=== PATIENT | female | born 1985 | race Two or more races ===

== ENCOUNTER 2020-05-08 09:50 | Inpatient (IN) | payer OTHER ==
[~2020-05-08] VITALS: Ht 160 cm; Wt 87.5 kg
[2020-05-08] MEDS ORDERED: LOSARTAN POTAS100 MG (10:12)
[2020-05-08] MEDS ORDERED: VITAMINA D (10:13)
--- NOTE | 2020-05-08 10:13 | NUR ---
SE RECIBE PTE. FEMENINA ALERTA CONCIENTE Y ORIENTADA QUE REFIERE DIARREAS VOMITOS X8 NAUSEAS MALESTAR GENERAL DESDE HOY EN LA MANANA.
--- NOTE | 2020-05-08 10:48 | NUR ---
PACIENTE ALERTA,ESTABLE Y ORIENTADA .SE ORIENTA SOBRE EL TRATAMIENTO QUE SE LE REALIZARA EN EL HOSPITAL Y ESTA REFIERE ENTENDER
--- NOTE | 2020-05-08 15:00 | NUR ---
PACIENTE FEMINA ALERTA ORIENTADA EN COMPANIA DE FAMILAIR. AREA DE VENOPUNCION PATENTE PATRICIA DE EDEMA Y ERITEMA. PENDIENTE RESULTADOS DE LABORATORIO Y CT ABDOMINOPELVICO. SE AVTAR PRIVACIDAD Y SEGURIDAD EN TODO MOMENTO. ACIENTE ESTBALE.
== END 2020-05-11 12:06 | disposition home or self-care (01) | DRG 419 ==
LOC: ER 09:50 → SURH 21:45
PROVIDERS: ADMIT Surgery; ATTEND Surgery
PROC: 0FT44ZZ Resection of Gallbladder, Percutaneous Endoscopic Approach (ICD-10-PCS; principal; 2020-05-09 07:00)
DX: K80.00 Calculus of gallbladder with acute cholecystitis without obstruction (principal); E86.0 Dehydration; K58.8 Other irritable bowel syndrome; Z20.828 Contact with and (suspected) exposure to other viral communicable diseases; I10 Essential (primary) hypertension; E55.9 Vitamin D deficiency, unspecified; E87.8 Other disorders of electrolyte and fluid balance, not elsewhere classified

== ENCOUNTER 2021-06-18 21:56 | Emergency (ER) | payer OTHER ==
[~2021-06-18] VITALS: Ht 157.5 cm; Wt 86.2 kg
[~2021-06-18 21:56] MED LIST: LOSARTAN POTAS100 MG; VITAMINA D
== END 2021-06-19 00:58 ==
LOC: ER 21:56
DX: U07.1 COVID-19 (principal); R00.2 Palpitations; I10 Essential (primary) hypertension

== ENCOUNTER 2022-02-23 00:40 | Emergency (ER) | payer OTHER ==
[~2022-02-23] VITALS: Ht 154.9 cm; Wt 88.5 kg
[2022-02-23] MEDS ORDERED: NORFLEX100MG PO (03:51)
== END 2022-02-23 03:57 ==
LOC: ER 00:40
DX: G44.209 Tension-type headache, unspecified, not intractable (principal); I10 Essential (primary) hypertension; R07.89 Other chest pain; Z88.0 Allergy status to penicillin; Z88.6 Allergy status to analgesic agent; Z88.8 Allergy status to other drugs, medicaments and biological substances

== ENCOUNTER 2022-07-23 11:34 | Emergency (ER) | payer OTHER ==
[~2022-07-23] VITALS: Ht 157.5 cm; Wt 83.9 kg
[~2022-07-23 11:34] MED LIST changes: +NORFLEX100MG PO
== END 2022-07-23 14:30 | disposition home or self-care (01) ==
LOC: ER 11:34
DX: B34.9 Viral infection, unspecified (principal); Z88.6 Allergy status to analgesic agent; Z88.0 Allergy status to penicillin; Z88.8 Allergy status to other drugs, medicaments and biological substances; Z20.822 Contact with and (suspected) exposure to COVID-19; I10 Essential (primary) hypertension